=== PATIENT | male | born 1950 | race Caucasian/White ===

== ENCOUNTER 2017-11-22 16:21 | Emergency (ER) | payer MEDICARE, OTHER ==
[2017-11-22] MEDS ORDERED: Bacitracin Oint 1 GM U/D Packet TOP ONE (17:18)
[2017-11-22] MEDS ORDERED: Lidocaine 1% 20 ML MDV INJECT ONE (17:18)
--- NOTE | 2017-11-22 18:15 | EDM.PDOC ---
ED HPI GENERAL MEDICAL PROBLEM - General Chief Complaint: Upper Extremity Injury/Pain Stated Complaint: HURT HAND Time Seen by Provider: 11/22/17 17:15 Source of Information: Reports: Patient History Limitations: Reports: No Limitations - History of Present Illness INITIAL COMMENTS - FREE TEXT/NARRATIVE: 67-year-old male had an [place] crank handle slam against the top of his right hand. He has no bony pain but has a significant laceration on the top of his hand. No other injury. Onset: Today Duration: Hour(s): (Within the past 2 hours) Location: Reports: Upper Extremity, Right Severity: Moderate Associated Symptoms: Reports: No Other Symptoms - Related Data Allergies Allergy/AdvReac Type Severity Reaction Status Date / Time No Known Allergies Allergy Verified 11/22/17 16:58 Home Meds: Home Meds . [Unable to Verify Home Med List] 11/22/17 [History] Past Medical History - Past Health History Medical/Surgical History: Denies Medical/Surgical History Cardiovascular History: Reports: High Cholesterol, Hypertension Genitourinary History: Reports: BPH Musculoskeletal History: Reports: Fracture Endocrine/Metabolic History: Reports: Diabetes, Type II - Past Surgical History GI Surgical History: Reports: Appendectomy Social & Family History - Tobacco Use Smoking Status *Q: Never Smoker Review of Systems - Review of Systems Review Of Systems: See Below Constitutional: Denies: Fever Respiratory: Denies: Shortness of Breath Cardiovascular: Denies: Chest Pain GI/Abdominal: Denies: Nausea, Vomiting ED EXAM, GENERAL - Physical Exam Exam: See Below Exam Limited By: No Limitations General Appearance: Alert, No Apparent Distress Respiratory/Chest: No Respiratory Distress Extremities: Other (Exam is otherwise limited to the right hand. The patient has a fairly large, 8 cm, curved macerated laceration on the dorsal aspect of the hand that extends deep into the subcutaneous tissue. There is no active bleeding and distal CMS is intact.) Course - Vital Signs Last Recorded V/S: Last Vital Signs Temp 97.7 F 11/22/17 17:07 Pulse 90 11/22/17 17:07 Resp 14 11/22/17 17:07 BP 142/79 H 11/22/17 17:07 Pulse Ox 92 L 11/22/17 17:07 - Orders/Labs/Meds Meds: Medications Discontinued Medications Generic Name Dose Route Start Last Admin Trade Name Freq PRN Reason Stop Dose Admin Bacitracin 1 dose 11/22/17 17:18 11/22/17 17:38 Bacitracin Oint 1 Gm TOP 11/22/17 17:19 1 dose ONETIME ONE Administration Lidocaine HCl 20 ml 11/22/17 17:18 11/22/17 17:38 Xylocaine 1% INJECT 11/22/17 17:19 20 ml ONETIME ONE Administration - Re-Assessments/Exams Free Text/Narrative Re-Assessment/Exam: 11/22/17 18:13 The hand was anesthetized with 10 mL of lidocaine. It was cleansed thoroughly with saline, and 6 5-0 Vicryl sutures were used to close the subcutaneous tissue , and 13 4.0 sutures with alternating horizontal mattress sutures and normal sutures were used to close the outside portion of the laceration. Topical bacitracin was applied and a pressure dressing to the hand. Patient was put on cephalexin 500 mg 3 times a day for the next 7 days as he intends to continue fishing and putting his hands in the [place]. He is also a type II diabetic. He will return for suture removal in 9 days. Recheck sooner if concerns of infection or not healing satisfactorily. Departure - Departure Time of Disposition: 18:38 Disposition: Home, Self-Care 01 Condition: Good Clinical Impression: Laceration of hand Qualifiers: Encounter type: initial encounter Foreign body presence: without foreign body Laterality: right Qualified Code(s): S61.411A - Laceration without foreign body of right hand, initial encounter - Discharge Information Instructions: Laceration Care, Adult Referrals: PCP,None [Primary Care Provider] - Forms: ED Department Discharge Care Plan Goals: Keep wound covered and clean while healing. Take antibiotic as prescribed, and return in 9 days for suture removal. Return sooner if concerns of infection or not healing satisfactorily.
== END 2017-11-22 18:38 | disposition home or self-care (01) ==
LOC: JP.ED 16:21
DX: S61.411A Laceration without foreign body of right hand, initial encounter (principal); W26.8XXA Contact with other sharp object(s), not elsewhere classified, initial encounter
CPT/HCPCS: 12044; 99283-25

== ENCOUNTER 2025-05-16 17:06 | Emergency (ER) | payer MEDICARE, OTHER | END 2025-05-16 19:04 | disposition home or self-care (01) | LOC: JP.ED 17:06 | DX: T83.018A Breakdown (mechanical) of other urinary catheter, initial encounter (principal); I10 Essential (primary) hypertension; E11.9 Type 2 diabetes mellitus without complications; Z90.49 Acquired absence of other specified parts of digestive tract | CPT/HCPCS: 51702; 99283 ==

== ENCOUNTER 2025-05-29 19:28 | Emergency (ER) | payer MEDICARE, OTHER | END 2025-05-29 20:26 | disposition home or self-care (01) | LOC: JP.ED 19:28 | DX: Z46.6 Encounter for fitting and adjustment of urinary device (principal); I10 Essential (primary) hypertension; E11.9 Type 2 diabetes mellitus without complications; Z90.49 Acquired absence of other specified parts of digestive tract | CPT/HCPCS: 51702; 99283; A4217 ==

== ENCOUNTER 2025-06-02 13:50 | Emergency (ER) | payer MEDICARE, OTHER | END 2025-06-02 15:18 | disposition home or self-care (01) | LOC: JP.ED 13:50 | DX: T83.091A Other mechanical complication of indwelling urethral catheter, initial encounter (principal); I10 Essential (primary) hypertension; E78.00 Pure hypercholesterolemia, unspecified; E11.9 Type 2 diabetes mellitus without complications; Y84.6 Urinary catheterization as the cause of abnormal reaction of the patient, or of later complication, without mention of misadventure at the time of the procedure | CPT/HCPCS: 99283; A4217 ==